=== PATIENT | female | born 1975 | race African-American/Black ===

== ENCOUNTER 2018-04-06 07:52 | Day surgery (SDC) | payer OTHER ==
[2018-04-05 11:35] VITALS: BMI 29.7
[~2018-04-06 07:52] MED LIST: ACETAMINOPHEN 325 MG TABLET (FP) PO PRN; LIDOCAINE HCL 2% JELLY (5 ML/TUBE) TP ONE; POVIDONE-IODINE 5% OPHTHALMIC PREP 30 ML SOLUTION OS ONE; TOBRAMYCIN/DEXAMETHASONE OPHTH. OINTMENT 1 TUBE TP ONE
[2018-04-06] MEDS: PHENYLEPHRINE 2.5% OPHTH SOLN 15 ML BOTTLE OP SCH ×3 (08:15→08:25)
[2018-04-06] MEDS: KETOROLAC TROMETHAMINE 0.5% EYE DROP 1 DROP DROPS OP SCH ×3 (08:15→08:25)
[2018-04-06] MEDS: TROPICAMIDE 1% OPHTH SOLN 15 ML BOTTLE OP SCH ×3 (08:15→08:25)
[2018-04-06] MEDS: CIPROFLOXACIN HCL 0.3% OPHTH 2.5ML BOTTLE OP SCH ×3 (08:15→08:25)
[2018-04-06] MEDS ORDERED: CIPROFLOXACIN HCL 0.3% OPHTH 2.5ML BOTTLE ONE (08:17)
[2018-04-06] MEDS ORDERED: PHENYLEPHRINE 2.5% OPHTH SOLN 15 ML BOTTLE ONE (08:17)
[2018-04-06] MEDS ORDERED: TROPICAMIDE 1% OPHTH SOLN 15 ML BOTTLE ONE (08:17)
[2018-04-06] MEDS ORDERED: KETOROLAC TROMETHAMINE 0.5% EYE DROP 1 DROP DROPS ONE (08:17)
[2018-04-06] MEDS ORDERED: MIDAZOLAM HCL 2 MG/2 ML SINGLE DOSE VIAL ONE ×3 (09:45→10:52)
--- NOTE | 2018-04-06 09:46 | HP ---
History & Physical Update - History History: No Change - Physical Physical: No Change - Assessment Assessment: No Change - Plan Plan: No Change (Liam H and P by Dr. Cantu from 03/29/18 no changes)
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
[2018-04-06] MEDS ORDERED: LIDOCAINE HCL 2% JELLY (5 ML/TUBE) TP ONE (10:01)
[2018-04-06] MEDS ORDERED: POVIDONE-IODINE 5% OPHTHALMIC PREP 30 ML SOLUTION OS ONE (10:06)
[2018-04-06] MEDS ORDERED: BSS (NA/CA/MG/K) BALANCED SALT SOLUTION OPHTH SOLN 15 ML BOTTLE OS ONE (10:15)
[2018-04-06] MEDS ORDERED: LIDOCAINE HCL 1% PRESERVATIVE FREE - 30ML VIAL IO ONE (10:15)
[2018-04-06] MEDS ORDERED: CHONDROITIN SU A/HYALUR SOD 1 KIT IO ONE ×2 (10:15)
[2018-04-06] MEDS ORDERED: EPINEPHrine/PF 1 MG/1 ML (1:1,000) AMPULE SQ ONE (10:21)
[2018-04-06] MEDS ORDERED: TOBRAMYCIN/DEXAMETHASONE OPHTH. OINTMENT 1 TUBE TP ONE (10:37)
--- NOTE | 2018-04-06 10:46 | OP ---
Ophthalmology Operative Note Pre-Operative Diagnosis: Cataract (psc) Affected Eye: Left Operation: Phacoemulsification and cataract extraction with PCIOL Findings: psc cataract os Post-Operative Diagnosis: Same as Pre-op Staff Anesthetist: None Anesthesiologist: Jadon العراقي Anesthesia: Topical Specimens Removed: none Estimated blood loss: none Drains & Tubes with Location: none Operative Report Dictated: Yes
[2018-04-06] MEDS ORDERED: LIDOCAINE HCL/PF 2% SDV 5ML VIAL ONE (10:52)
[2018-04-06] MEDS ORDERED: CHONDROITIN SU A/HYALUR SOD 1 KIT ONE (10:52)
[2018-04-06] MEDS ORDERED: PROPOFOL 20 ML ONE (10:52)
[2018-04-06 11:19] VITALS: BP 139/98; PULSE 83; TEMP 98.3
--- NOTE | 2018-04-06 11:23 | OP ---
DATE OF OPERATION: 04/06/2018 PREOPERATIVE DIAGNOSIS: Posterior subcapsular cataract, left eye. POSTOPERATIVE DIAGNOSIS: Posterior subcapsular cataract, left eye. PROCEDURE: Phacoemulsification and cataract extraction with insertion of posterior chamber intraocular lens, left eye. SURGEON: Myranda Norris MD TEACHER OF THE SIGHT IMPAIRED: None. ANESTHESIA: Topical. ANESTHESIOLOGIST: Jadon العراقي CRNA OPERATIVE PROCEDURE: The patient received viscous lidocaine gel and was then gently sedated and prepped and draped in the usual sterile fashion so as to expose only the left eye. Ophthalmic Betadine was instilled into the inferior fornix. The lashes were taped out of the surgical field. An eyelid speculum was placed into the left eye. A paracentesis was made in inferior clear cornea at the limbus. Next, 0.5 mL of nonpreserved lidocaine 1% was injected into the anterior chamber. Viscoelastic material was instilled into the anterior chamber via the paracentesis. A 2.4-mm keratome was then used to create the main incision in temporal clear cornea at the limbus. A continuous curvilinear capsulorrhexis was performed using a cystotome and Utrata forceps. Hydrodissection of the lens cortex was performed using BSS on a cannula until the nucleus was noted to be freely rotating. The phacoemulsification tip was inserted via the main wound and used to sculpt 2 perpendicular grooves in the lens nucleus. The nucleus was cracked into 4 quadrants. Each quadrant was lifted out of the capsule into the iris plane and individually phacoemulsified. The remaining cortical material was aspirated using the irrigation and aspiration port. The capsular bag was inflated using Provisc, and a preloaded Hoya lens model AU00T0 +6.0 diopters for myopia was injected into the capsular bag and centered using a Sinskey hook. The residual viscoelastic material was removed from the anterior chamber using irrigation and aspiration. The wound edges were hydrated using BSS. The wound was tested for leakage. It was found to be watertight. TobraDex ointment was placed in the eye. The speculum was removed from the eye, and the eyelids were closed. A sterile dressing and shield were placed over the eye, and the patient was transferred to the recovery room in stable condition, told to follow up in 1 day. MYRANDA NORRIS M.D. BLANCA/[id number]
== END 2018-04-06 11:20 | disposition home or self-care (01) ==
LOC: JASU-SURG 07:52
PROVIDERS: ATTEND Ophthalmology
PROC: 08RK3JZ Replacement of Left Lens with Synthetic Substitute, Percutaneous Approach (ICD-10-PCS; principal; 2018-04-06 09:30)
DX: H25.041 Posterior subcapsular polar age-related cataract, right eye (principal)
CPT/HCPCS: 84703

== ENCOUNTER 2018-04-13 07:10 | Day surgery (SDC) | payer OTHER ==
[2018-04-12 15:03] VITALS: BMI 29.3
--- NOTE | 2018-04-12 18:43 | HP ---
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) Eye Medications: ketorolac 0/4, cipro 4/4, pred forte 0/4 Previous Eye Surgery: s/p ce/pciol OS - Medical History Illnesses: None Current Medications: Ambulatory Orders Oxycodone HCl/Acetaminophen [Percocet 5-325 mg Tablet] 1 tab PO Q6H PRN Diclofenac Submicronized [Zorvolex] 35 mg PO 04/12/18 Allergies/Adverse Reactions: Allergies Allergy/AdvReac Type Severity Reaction Status Date / Time No Known Drug Allergies Allergy Verified 04/12/18 14:56 mushrooms Allergy Uncoded 04/12/18 14:56 Ocular Examination - Best Corrected Visual Acuity Distance: Right eye: 20/70 Distance: Left eye: 20/40 - External/Slit Lamp Examination Abnormalities: none - Intraocular Pressure Intraocular Pressure - Right eye: 16 Intraocular Pressure-Left eye: 15 - Lens Lens: 2+ PSC - Vitreous/Retina Vitreous/Retina: C:D 0.15 m/v wnl , p lattice inferiorly - Special Examination M - Right eye: -13.75-1.50 x 004 M - Left eye: -1.00-1.00 x 013 K - Right eye: 44.75/45.75 x85 K - Left eye: 44/46 102 AL - Right eye: 28.73 AL - Left eye: 29.43 IOL bag: -6.50 AUOOTO IOL sulcus: -6.00 MN60AC IOL AC: -5.50 MTA4uo - Impression Impression: Cataract Right Eye (PSC) - Plan Plan: Phacoemulsification and cataract extraction - IOL Right eye Post-hospital care will be provided in office on: 04/14/18
[~2018-04-13 07:10] MED LIST changes: +KETOROLAC TROMETHAMINE 0.5% EYE DROP 1 DROP DROPS OP SCH; -LIDOCAINE HCL 2% JELLY (5 ML/TUBE) TP ONE; +PHENYLEPHRINE 2.5% OPHTH SOLN 15 ML BOTTLE OP SCH; -POVIDONE-IODINE 5% OPHTHALMIC PREP 30 ML SOLUTION OS ONE; +TOBRAMYCIN/DEXAMETHASONE OPHTH. OINTMENT 1 TUBE OD ONE; -TOBRAMYCIN/DEXAMETHASONE OPHTH. OINTMENT 1 TUBE TP ONE
--- NOTE | 2018-04-13 07:20 | HP ---
History & Physical Update - History History: No Change - Physical Physical: No Change - Assessment Assessment: No Change - Plan Plan: No Change (Reviewed Dr. Cantu's H and P from 03/29/18 no changes)
[2018-04-13] MEDS ORDERED: CHONDROITIN SU A/HYALUR SOD 1 KIT ONE (07:21)
[2018-04-13] MEDS ORDERED: LIDOCAINE HCL 2% JELLY (5 ML/TUBE) ONE (07:27)
[2018-04-13] MEDS ORDERED: TOBRAMYCIN/DEXAMETHASONE OPHTH. OINTMENT 1 TUBE ONE (07:27)
[2018-04-13] MEDS ORDERED: LIDOCAINE HCL/PF 1% SDV 5ML VIAL ONE (07:27)
[2018-04-13] MEDS: TROPICAMIDE 1% OPHTH SOLN 15 ML BOTTLE OP SCH ×3 (07:30→08:00)
[2018-04-13] MEDS: PHENYLEPHRINE 2.5% OPHTH SOLN 15 ML BOTTLE ONE ×2 (07:30→08:00)
[2018-04-13] MEDS: CIPROFLOXACIN HCL 0.3% OPHTH 2.5ML BOTTLE OP SCH ×3 (07:30→08:00)
[2018-04-13] MEDS ORDERED: CIPROFLOXACIN HCL 0.3% OPHTH 2.5ML BOTTLE ONE (07:44)
[2018-04-13] MEDS: KETOROLAC TROMETHAMINE 0.5% EYE DROP 1 DROP DROPS ONE ×2 (07:45→08:00)
[2018-04-13] MEDS ORDERED: TROPICAMIDE 1% OPHTH SOLN 15 ML BOTTLE ONE (07:45)
[2018-04-13 08:10] VITALS: TEMP 98.5
[2018-04-13] MEDS ORDERED: MIDAZOLAM HCL 2 MG/2 ML SINGLE DOSE VIAL ONE (08:34)
[2018-04-13] MEDS ORDERED: LIDOCAINE HCL 2% JELLY (5 ML/TUBE) TP ONE (08:48)
[2018-04-13] MEDS ORDERED: POVIDONE-IODINE 5% OPHTHALMIC PREP 30 ML SOLUTION OD ONE (08:52)
[2018-04-13] MEDS ORDERED: LIDOCAINE HCL 1% PRESERVATIVE FREE - 30ML VIAL IO ONE (08:58)
[2018-04-13] MEDS ORDERED: CHONDROITIN SU A/HYALUR SOD 1 KIT IO ONE (08:58)
[2018-04-13] MEDS ORDERED: BSS (NA/CA/MG/K) BALANCED SALT SOLUTION OPHTH SOLN 15 ML BOTTLE OD ONE (08:58)
[2018-04-13] MEDS ORDERED: EPINEPHrine/PF 1 MG/1 ML (1:1,000) AMPULE SQ ONE (09:07)
[2018-04-13] MEDS ORDERED: TETRACAINE 0.5% OPHTH SOLN 2 ML BOTTLE ONE (09:22)
[2018-04-13] MEDS ORDERED: TETRACAINE 0.5% OPHTH SOLN 2 ML BOTTLE OD ONE (09:23)
[2018-04-13] MEDS ORDERED: TOBRAMYCIN/DEXAMETHASONE OPHTH. OINTMENT 1 TUBE OD ONE (09:29)
--- NOTE | 2018-04-13 09:34 | OP ---
Ophthalmology Operative Note Pre-Operative Diagnosis: Cataract (psc) Affected Eye: Right Operation: Phacoemulsification and cataract extraction with PCIOL Findings: PSC cataract od Post-Operative Diagnosis: Same as Pre-op Information Management Officer: None Anesthesiologist: Augustina Boogie Anesthesia: Topical Specimens Removed: none Estimated blood loss: <1 cc Drains & Tubes with Location: none Operative Report Dictated: Yes
[2018-04-13 09:49] VITALS: PULSE 68
--- NOTE | 2018-04-13 10:08 | OP ---
DATE OF OPERATION: 04/13/2018 PREOPERATIVE DIAGNOSIS: Posterior subcapsular cataract, right eye. POSTOPERATIVE DIAGNOSIS: Posterior subcapsular cataract, right eye. PROCEDURE: Phacoemulsification and cataract extraction with insertion of posterior chamber intraocular lens, right eye. SURGEON: Myranda Norris MD BELT TENDER: None. ANESTHESIA: Topical. ANESTHESIOLOGIST: Augustina Boogie MD OPERATIVE PROCEDURE: The patient received 2% lidocaine gel and then was brought to the operating room and gently sedated and prepped and draped in the usual sterile fashion so as to expose only the right eye. Ophthalmic Betadine was instilled into the inferior fornix. The lashes were taped out of the surgical field. An eyelid speculum was placed into the right eye. A paracentesis was made in superotemporal clear cornea at the limbus. Next, 0.5 mL of nonpreserved lidocaine 1% was injected into the anterior chamber. Viscoelastic material was instilled into the anterior chamber via the paracentesis. A 2.4-mm keratome was then used to create the main incision in temporal clear cornea at the limbus. A continuous curvilinear capsulorrhexis was performed using a cystotome and Utrata forceps. Hydrodissection of the lens cortex was performed using BSS on a cannula until the nucleus was noted to be freely rotating. The phacoemulsification tip was inserted via the main wound and used to sculpt 2 perpendicular grooves into the lens nucleus. The nucleus was cracked into 4 quadrants. Each quadrant was lifted out of the capsule into the iris plane and individually phacoemulsified. The remaining cortical material was aspirated using the irrigation and aspiration port. The capsular bag was inflated using Provisc, and a preloaded AcrySof lens model AU00T0, power +6.5 diopters was injected into the capsular bag and centered using a Sinskey hook. The residual viscoelastic material was removed from the anterior chamber using irrigation and aspiration. The wound edges were hydrated using BSS. The wound was tested for leakage. It was found to be watertight. TobraDex ointment was placed in the eye, and the speculum was removed from the eye. A sterile dressing and shield were placed over the eye, and the patient was transferred to the recovery room in stable condition, told to follow up in 1 day. MYRANDA NORRIS M.D. BLANCA/[id number]
[2018-04-13 10:25] VITALS: BP 129/86
== END 2018-04-13 10:26 | disposition home or self-care (01) ==
LOC: JASU-SURG 07:10
PROVIDERS: ATTEND Ophthalmology
PROC: 08RJ3JZ Replacement of Right Lens with Synthetic Substitute, Percutaneous Approach (ICD-10-PCS; principal; 2018-04-13 08:30)
DX: H26.9 Unspecified cataract (principal)
CPT/HCPCS: 36415; 84703

== ENCOUNTER 2019-03-14 07:31 | Day surgery (SDC) | payer OTHER ==
[2019-03-06 18:01] VITALS: BMI 30.4
[2019-03-14] MEDS ORDERED: MIDAZOLAM HCL 2 MG/2 ML SINGLE DOSE VIAL ONE ×2 (10:03→11:39)
[2019-03-14] MEDS ORDERED: ROPIVACAINE HCL 0.5% 30ML VIAL ONE (10:03)
[2019-03-14] MEDS ORDERED: PROPOFOL 20 ML ONE ×2 (10:23→12:52)
[2019-03-14] MEDS ORDERED: EPINEPHrine 1:1,000 1 MG/1 ML - 30ML VIAL (INJECTION) ONE (11:02)
[2019-03-14] MEDS ORDERED: ceFAZolin SODIUM 1 GM VIAL ONE (11:47)
[2019-03-14] MEDS ORDERED: ONDANSETRON 4 MG/2 ML VIAL IVPUSH PRN (15:04)
[2019-03-14] MEDS ORDERED: ACETAMINOPHEN 325 MG TABLET (FP) PO PRN (15:04)
[2019-03-14] MEDS ORDERED: oxyCODONE HCL 5 MG TABLET PO PRN ×2 (15:04)
[2019-03-14 15:12] VITALS: TEMP 98.5
[2019-03-14] MEDS ORDERED: LACTATED RINGERS SOLUTION 1,000 ML IV SCH (15:15)
[2019-03-14 16:41] VITALS: BP 139/79; PULSE 88
--- NOTE | 2019-03-18 15:42 | OP ---
DATE OF OPERATION: 03/14/2019 PREOPERATIVE DIAGNOSES: 1. Right shoulder rotator cuff tear. 2. Right shoulder subacromial impingement. POSTOPERATIVE DIAGNOSES: 1. Right shoulder anterior supraspinatus full-thickness tear of rotator cuff. 2. Right shoulder subacromial impingement syndrome with bursitis and anterior inferior subacromial spur. 3. Glenohumeral joint synovitis with labral fraying. OPERATIVE PROCEDURES: 1. Right shoulder arthroscopic rotator cuff repair. 2. Right shoulder arthroscopic subacromial decompression. 3. Right shoulder glenohumeral joint extensive debridement. SURGEON: Sari Rene MD SCI[employer]ENTER DISPLAY BUILDER: STEPAN Mane ANESTHESIA: Regional. COMPLICATIONS: None. ESTIMATED BLOOD LOSS: Minimal. INDICATION FOR PROCEDURE: The patient is a 43-year-old female with the above finding, indicated for operative treatment. Risks, benefits alternatives were discussed with the patient at length, and proper informed consent was obtained. PROCEDURE: After proper identification of patient and correct operative site, patient was given regional anesthesia by the anesthesiologist, which was adequate for procedure. She was then brought to the operating room and placed into the beach chair position with all points of contact well padded and in-line cervical positioning maintained throughout the procedure. Right upper extremity was prepped and draped in the usual sterile fashion. Standard diagnostic arthroscopy was performed through posterior, lateral, and anterior portals. All portals were made with skin incision only and blunt dissection down to the joint capsule. Arthroscope was introduced into the glenohumeral joint first, and the glenohumeral joint was observed. There was no evidence of significant chondral injury. There was mild to moderate fraying of the anterior and superior labrum. There was no detachment of the biceps anchor. The biceps tendon itself appeared intact without any significant tearing or fraying. The extraarticular portion of the biceps was brought into the joint and found to be normal. Significant synovitis was noted in the anterior and superior aspect of the glenohumeral joint. This was debrided extensively with a mechanical shaver, including the frayed labrum. Stable labrum was found after debridement. There were no loose bodies in the axillary pouch. Subscapularis was intact. Infraspinatus was intact. There was an anterior supraspinatus full-thickness tear measuring 1.5 to 2 cm in anterior-posterior dimensions. This was debrided extensively, along with contiguous fraying down to healthy stable tendon edge. This was minimally retracted and easily reapproximated to the greater tuberosity. The greater tuberosity was prepared by shaving down the bone to healthy bleeding bone for repair. A SpeedBridge type double row equivalent repair was planned, and 2 anchors were placed in the articular margin at this time. These were Arthrex Swivel-Lock anchors. These were loaded with FiberTape. The arthroscope was then introduced in the subacromial space. A severe bursitis was noted. This was debrided with a mechanical shaver and ArthroWand. A moderate size anterior inferior subacromial spur was also noted and an anterior inferior acromioplasty was performed. Significant bursal-sided fraying of the rotator cuff was visualized and debrided. The full-thickness tear previously described was also visualized and no further tearing was noted. At this point, the previously placed anchors had the sutures of these anchors passed through the rotator cuff. These were double-loaded sutures and the sutures were then crisscrossed and then secured laterally with 2 further Swivel-Lock anchors for a double row equivalent repair with all Arthrex anchors knotless anchors. This provided a secure stable repair of the rotator cuff. The shoulder was taken through a range of motion and no stopping of the rotator cuff or tension on the repair was noted. There was no further impingement. The wound was irrigated with saline and repaired with 5-0 nylon sutures. Sterile dressings were applied. Sling and ice machine were placed. Patient was brought to recovery room in stable condition. She tolerated procedure well. Tresa Salgado, the assistant spa director, was integral throughout this procedure. The procedure could not have been performed without a skilled operative assistant spa director. SARI RENE M.D. [id number]
== END 2019-03-14 16:30 | disposition home or self-care (01) ==
LOC: FASU 07:31
PROVIDERS: ATTEND Orthopaedic Surgery Hand Surgery
PROC: 0RBJ4ZZ Excision of Right Shoulder Joint, Percutaneous Endoscopic Approach (ICD-10-PCS; 2019-03-14)
PROC: 0LQ14ZZ Repair Right Shoulder Tendon, Percutaneous Endoscopic Approach (ICD-10-PCS; principal; 2019-03-14 11:53)
PROC: 0RNJ4ZZ Release Right Shoulder Joint, Percutaneous Endoscopic Approach (ICD-10-PCS; 2019-03-14 11:53)
DX: M75.121 Complete rotator cuff tear or rupture of right shoulder, not specified as traumatic (principal); M75.41 Impingement syndrome of right shoulder; M65.811 Other synovitis and tenosynovitis, right shoulder
CPT/HCPCS: 84703; 94760